=== PATIENT | male | born 1950 | race Caucasian/White ===

== ENCOUNTER 2018-01-07 18:14 | Inpatient (IN) | payer OTHER, MEDICARE ==
[2018-01-07] MEDS: IPRATROPIUM (NEB) 0.5 MG/2.5 ML AMP INH (22:18)
[2018-01-07] MEDS: ALBUTEROL 0.5% (NEB) 2.5 MG/0.5 ML AMP INH (22:18)
[2018-01-07] MEDS: METHYLPREDNISOLONE 125 MG INJ IV (22:20)
[2018-01-07] MEDS: MAGNESIUM SULFATE 2 GM/50 ML 50 ML IVPB (22:21)
[2018-01-07 22:30] LABS: ADD MAN DIFF? NO
[2018-01-07 22:32] LABS: WHITE BLOOD COUNT 8.2 10^3/ul (4.8-10.8)
[2018-01-07 22:32] LABS: ABNORMAL IP MESSAGE 1; BASOPHILS % 0.2 % (0.0-2.0); EOSINOPHILS # 0.1 10^3/ul (0.0-0.5); EOSINOPHILS % 0.6 % (0.0-7.0); HEMATOCRIT 44.8 % (42.0-52.0); LYMPHOCYTES # 0.5 10^3/ul (0.8-2.9); LYMPHOCYTES % 5.9 % (15.0-51.0); MEAN CORPUSCULAR HGB CONC 33.5 g/dl (32.0-37.0); MEAN CORPUSCULAR VOLUME 92.6 fl (82.0-101.0); MEAN PLATELET VOLUME 10.5 fl (7.4-10.4); MONOCYTE # 0.9 10^3/ul (0.3-0.9); MONOCYTES % 11.5 % (0.0-11.0); NEUTROPHIL # 6.6 10^3/ul (1.6-7.5); NEUTROPHILS % 81.1 % (39.0-77.0); PLATELET COUNT 222 10^3/UL (140-415); POSITIVE DIFF @See below; RED BLOOD COUNT 4.84 10^6/ul (4.70-6.10); RED CELL DISTRIBUTION WIDTH 14.2 % (11.5-14.5)
[2018-01-07 22:52] LABS: INR 0.93; PROTIME 12.6 Sec (11.9-14.9)
[2018-01-07 22:53] LABS: PARTIAL THROMBOPLASTIN TIME 26.6 Sec (25.0-35.0)
[2018-01-07 22:56] LABS: ALANINE AMINOTRANSFERASE 48 IU/L (13-69); ALBUMIN 4.3 g/dl (3.3-4.9); ALBUMIN/GLOBULIN RATIO 1.19; ALKALINE PHOSPHATASE 103 IU/L (42-121); ANION GAP 14 (8-16); ASPARTATE AMINO TRANSFERASE 36 IU/L (15-46); BILIRUBIN,INDIRECT 0.1 mg/dl (0-1.1); BILIRUBIN,TOTAL 0.1 mg/dl (0.2-1.3); BLOOD UREA NITROGEN 17 mg/dl (7-20); CALCIUM 8.8 mg/dl (8.4-10.2); CARBON DIOXIDE 29 mmol/L (21-31); CHLORIDE 98 mmol/L (97-110); CREATININE 0.95 mg/dl (0.61-1.24); GLUCOSE 159 mg/dl (70-220); SODIUM 137 mmol/L (135-144); TOTAL PROTEIN 7.9 g/dl (6.1-8.1)
[2018-01-07 23:08] LABS: TROPONIN-I < 0.012 ng/ml (0.00-0.12)
[2018-01-07 23:09] LABS: LACTIC ACID 2.1 mmol/L (0.5-2.0)
[2018-01-07] MEDS: SOD CHLORIDE 0.9% 1,000 ML IV (23:22)
[2018-01-08 01:17] LABS: LACTIC ACID 2.9 mmol/L (0.5-2.0)
[2018-01-08] MEDS: SOD CHLORIDE 0.9% 1,000 ML IV ×2 (02:19→06:48)
[2018-01-08] MEDS: SOD CHLORIDE 0.9% 500 ML IV (02:20)
[2018-01-08 03:22] LABS: LACTIC ACID 3.3 mmol/L (0.5-2.0)
[2018-01-08] MEDS ORDERED: GLUCAGON 1 MG INJ IM (06:30)
[2018-01-08] MEDS ORDERED: GLUCOSE GEL 15 GRAM TUBE PO ×2 (06:30)
[2018-01-08] MEDS ORDERED: GLUCOSE GEL 15 GRAM TUBE BUCCAL (06:30)
[2018-01-08] MEDS ORDERED: DEXTROSE 50% 50 ML SYRINGE IV ×2 (06:30)
[2018-01-08] MEDS: LEVOFLOXACIN 500MG/D5W (PMX) 100 ML IVPB (06:52)
[2018-01-08] MEDS ORDERED: ONDANSETRON 4 MG INJ IV ×2 (07:00→07:30)
[2018-01-08] MEDS: ACCU-CHEK XX ×4 (07:00→21:00)
[2018-01-08] MEDS ORDERED: ACETAMINOPHEN 325 MG TAB PO ×2 (07:00→07:30)
[2018-01-08] MEDS ORDERED: INSULIN ASPART [NOVOLOG] 3 ML PEN SC ×3 (07:00→09:00)
[2018-01-08] MEDS: BELLADONNA/PHENOBARBITAL TAB PO (07:28)
[2018-01-08] MEDS: LIDOCAINE/MYLANTA 40 ML BTL PO (07:28)
[2018-01-08] MEDS ORDERED: LEVALBUTEROL (NEB) 0.63 MG/3 ML AMP HHN (07:30)
[2018-01-08] MEDS ORDERED: NAPROXEN 500 MG TAB PO (07:30)
[2018-01-08] MEDS ORDERED: CYCLOBENZAPRINE 10 MG TAB PO (07:30)
[2018-01-08] MEDS ORDERED: NACL 0.9% 3 ML SYG IV (07:30)
[2018-01-08] MEDS ORDERED: IPRATROPIUM (NEB) 0.5 MG/2.5 ML AMP HHN (07:30)
[2018-01-08] MEDS ORDERED: morphine 2 MG INJ IV (07:30)
[2018-01-08] MEDS ORDERED: morphine LIQ (10 MG/5 ML) CUP PO (08:00)
[2018-01-08 08:27] LABS: ADD MAN DIFF? NO
[2018-01-08 08:38] LABS: WHITE BLOOD COUNT 6.6 10^3/ul (4.8-10.8)
[2018-01-08 08:38] LABS: ABNORMAL IP MESSAGE 1; HEMATOCRIT 40.3 % (42.0-52.0); HEMOGLOBIN 13.4 g/dl (14.0-18.0); LYMPHOCYTES # 0.4 10^3/ul (0.8-2.9); MEAN CORPUSCULAR HGB CONC 33.3 g/dl (32.0-37.0); MEAN CORPUSCULAR VOLUME 93.3 fl (82.0-101.0); MEAN PLATELET VOLUME 10.6 fl (7.4-10.4); MONOCYTE # 0.2 10^3/ul (0.3-0.9); MONOCYTES % 2.4 % (0.0-11.0); NEUTROPHILS % 91.1 % (39.0-77.0); PLATELET COUNT 186 10^3/UL (140-415); POSITIVE DIFF @See below; RED BLOOD COUNT 4.32 10^6/ul (4.70-6.10); RED CELL DISTRIBUTION WIDTH 14.3 % (11.5-14.5)
[2018-01-08 09:11] LABS: ALANINE AMINOTRANSFERASE 46 IU/L (13-69); ALBUMIN 3.8 g/dl (3.3-4.9); ALBUMIN/GLOBULIN RATIO 1.15; ALKALINE PHOSPHATASE 91 IU/L (42-121); ANION GAP 14 (8-16); ASPARTATE AMINO TRANSFERASE 30 IU/L (15-46); BLOOD UREA NITROGEN 14 mg/dl (7-20); CARBON DIOXIDE 27 mmol/L (21-31); CHLORIDE 102 mmol/L (97-110); CREATININE 0.61 mg/dl (0.61-1.24); GLUCOSE 213 mg/dl (70-220); MAGNESIUM 2.2 mg/dl (1.7-2.5); PHOSPHORUS 2.9 mg/dl (2.5-4.9); POTASSIUM 4.4 mmol/L (3.5-5.1); SODIUM 139 mmol/L (135-144); TOTAL PROTEIN 7.1 g/dl (6.1-8.1)
[2018-01-08] MEDS: Insulin NOVOLOG SS MILD Algorithm (SS with meals and bedtime) SC ×4 (09:12→21:00)
[2018-01-08 09:14] LABS: HEMOGLOBIN A1C 6.1 % (0-5.9)
[2018-01-08] MEDS: METHYLPREDNISOLONE 125 MG INJ IV (09:58)
[2018-01-08] MEDS: DOCUSATE SODIUM 100 MG CAP PO (09:59)
[2018-01-08] MEDS: ASPIRIN (EC) 81 MG TAB PO (10:00)
[2018-01-08] MEDS: HYDROCHLOROTHIAZIDE 25 MG TAB PO (10:00)
[2018-01-08] MEDS: predniSONE 20 MG TAB PO (10:00)
[2018-01-08] MEDS: BENAZEPRIL 40 MG TAB PO (10:04)
[2018-01-08] MEDS: LINAGLIPTIN 5 MG TABLET PO (10:05)
[2018-01-08 10:48] LABS: LACTIC ACID 2.7 mmol/L (0.5-2.0)
[2018-01-08] MEDS: HYDROCODONE/APAP (10/325) TAB PO (16:15)
[2018-01-08 16:26] LABS: LACTIC ACID 1.8 mmol/L (0.5-2.0)
[2018-01-08] MEDS: SOD CHLORIDE 0.45% 1,000 ML IV (16:35)
[2018-01-08] MEDS: CALCIUM CARBONATE 500 MG CHEW TAB PO (16:56)
[2018-01-08] MEDS: AMITRIPTYLINE 25 MG TAB PO (21:19)
[2018-01-08 22:55] LABS: LACTIC ACID 2.2 mmol/L (0.5-2.0)
[2018-01-09] MEDS: ACCUCHECK AT 2AM (Patients on SS coverage) XX (02:00)
[2018-01-09] MEDS: SOD CHLORIDE 0.45% 1,000 ML IV (05:10)
[2018-01-09 05:56] LABS: ADD MAN DIFF? NO
[2018-01-09 06:01] LABS: BASOPHILS % 0.1 % (0.0-2.0); HEMATOCRIT 41.3 % (42.0-52.0); LYMPHOCYTES # 0.9 10^3/ul (0.8-2.9); LYMPHOCYTES % 10.3 % (15.0-51.0); MEAN CORPUSCULAR HGB CONC 33.9 g/dl (32.0-37.0); MEAN CORPUSCULAR VOLUME 91.6 fl (82.0-101.0); MEAN PLATELET VOLUME 10.6 fl (7.4-10.4); MONOCYTE # 1.2 10^3/ul (0.3-0.9); MONOCYTES % 13.3 % (0.0-11.0); NEUTROPHIL # 6.9 10^3/ul (1.6-7.5); PLATELET COUNT 217 10^3/UL (140-415); RED BLOOD COUNT 4.51 10^6/ul (4.70-6.10); RED CELL DISTRIBUTION WIDTH 13.8 % (11.5-14.5)
[2018-01-09 06:01] LABS: WHITE BLOOD COUNT 9.1 10^3/ul (4.8-10.8)
[2018-01-09 06:32] LABS: ANION GAP 11 (8-16); BLOOD UREA NITROGEN 17 mg/dl (7-20); CALCIUM 8.7 mg/dl (8.4-10.2); CARBON DIOXIDE 29 mmol/L (21-31); CHLORIDE 98 mmol/L (97-110); CREATININE 0.65 mg/dl (0.61-1.24); GLUCOSE 129 mg/dl (70-220); POTASSIUM 4.1 mmol/L (3.5-5.1); SODIUM 134 mmol/L (135-144)
[2018-01-09] MEDS: Insulin NOVOLOG SS MILD Algorithm (SS with meals and bedtime) SC (07:30)
[2018-01-09] MEDS: ACCU-CHEK XX (07:30)
[2018-01-09] MEDS: DOCUSATE SODIUM 100 MG CAP PO (09:16)
[2018-01-09] MEDS: BENAZEPRIL 40 MG TAB PO (09:16)
[2018-01-09] MEDS: predniSONE 20 MG TAB PO (09:16)
[2018-01-09] MEDS: ASPIRIN (EC) 81 MG TAB PO (09:17)
[2018-01-09] MEDS: LINAGLIPTIN 5 MG TABLET PO (09:17)
[2018-01-09] MEDS: HYDROCHLOROTHIAZIDE 25 MG TAB PO (09:17)
[2018-01-09] MEDS: LEVOFLOXACIN 500MG/D5W (PMX) 100 ML IVPB (09:18)
== END 2018-01-09 13:10 | disposition home or self-care (01) | DRG 872 ==
LOC: E/R 18:14 → PP2 01-08 06:55
DX: A41.9 Sepsis, unspecified organism (principal); J44.9 Chronic obstructive pulmonary disease, unspecified; I10 Essential (primary) hypertension; E11.9 Type 2 diabetes mellitus without complications; J06.9 Acute upper respiratory infection, unspecified; J40 Bronchitis, not specified as acute or chronic
CPT/HCPCS: 36415; 71045; 80048; 80053; 82962; 83036; 83605; 83735; 84100; 84484; 85025; 85610; 85730; 87040; 87086; 87400; 93005; 94644; 96372; 96374; 96375; 96376; 99285-25